=== PATIENT | male | born 1990 | race Caucasian/White ===

== ENCOUNTER 2018-04-19 11:33 | Emergency (ER) | payer OTHER ==
[2018-04-19 12:03] LABS: ABS Basophils 0 10^3/ul (0-0.2); ABS Eosinophils 0.1 10^3/ul (0-0.6); ABS Lymphocytes 2.3 10^3/ul (1.0-4.8); ABS Monocytes 0.8 10^3/ul (0-0.8); ABS Neutrophils 4.9 10^3/ul (1.5-7.7); ABS Nucleated RBC 0 10^3/ul; Eosinophil % 1.3 % (0-6); Hematocrit 49 % (42-52); Hemoglobin 17.1 g/dl (14.0-18.0); Lymphocyte % 28.8 % (25-47); Mean Corpuscular HGB Conc 35 g/dl (31-36); Mean Corpuscular Hemoglobin 30 pg (27-31); Mean Corpuscular Volume 86 fL (80-94); Mean Platelet Volume 8.1 fL (7.4-10.4); Nucleated Red Blood Cells % 0.1; Platelet Count 333 10^3/ul (150-450); Red Blood Count 5.67 10^6/ul (4.00-5.40); Red Cell Distribution Width 13 % (10.5-15); White Blood Count 8.1 10^3/ul (3.5-10.8)
[2018-04-19] MEDS ORDERED: Pantoprazole IV* 40 MG IV ONE (12:07)
[2018-04-19] MEDS ORDERED: Ondansetron INJ* 2 MG/ML VIAL IV ONE (12:07)
[2018-04-19] MEDS ORDERED: NS 0.9% 1000 ML* 1,000 ML IV ONE ×2 (12:07→13:07)
[2018-04-19 12:16] LABS: Urine Appearance Cloudy; Urine Blood Negative (Negative); Urine Color Amber; Urine Ketones 2+ (Negative); Urine Protein 1+(30 mg/dL) (Negative); Urine Specific Gravity 1.026 (1.010-1.030); Urine Urobilinogen Negative (Negative)
[2018-04-19 12:22] LABS: EGFR Non-African American 91.1 (>60)
--- NOTE | 2018-04-19 12:22 | ED ---
GI/ HPI - HPI Summary HPI Summary: 27-year-old male presents with nausea vomiting diarrhea for the past couple weeks. He admits to epigastric pain. No blood in his stool. States has not been able to keep anything down. Has been on omeprazole chronically. Has a history of acid reflux. Was told to stop ibuprofen. He was seen at [place] [address] and ultrasound. symptoms have not been improving. He admits to some right-sided chest pain and shortness breath. He has history of asthma. No fevers. No sore throat. He denies any urinary symptoms. No flank pain. No testicular pain. Pain is sharp in nature. Pain has not changed locations. - History of Current Complaint Chief Complaint: EDAbdPain Time Seen by Provider: 04/19/18 11:43 Stated Complaint: ABD PAIN/VOMITING Pain Intensity: 4 - Additional Pertinent History Primary Care Physician: [id number] - Allergy/Home Medications Allergies/Adverse Reactions: Allergies Allergy/AdvReac Type Severity Reaction Status Date / Time acetaminophen [From NyQuil] Allergy Hallucinati Verified 04/19/18 11:41 ons dextromethorphan Allergy Hallucinati Verified 04/19/18 11:41 [From NyQuil] ons doxylamine [From NyQuil] Allergy Hallucinati Verified 04/19/18 11:41 ons latex Allergy Unknown Verified 04/19/18 11:41 Reaction Details pseudoephedrine [From NyQuil] Allergy Hallucinati Verified 04/19/18 11:41 ons PMH/Surg Hx/FS Hx/Imm Hx Endocrine/Hematology History: Denies: Hx Diabetes Cardiovascular History: Denies: Hx Hypertension, Hx Pacemaker/ICD Respiratory History: Reports: Hx Asthma History: Denies: Hx Renal Disease Sensory History: Denies: Hx Hearing Aid Neurological History: Reports: Hx Seizures Psychiatric History: Reports: Hx of Violent Episodes Against Others Denies: Hx Eating Disorder, Hx Panic Disorder Infectious Disease History: No Infectious Disease History: Denies: Traveled Outside the [place] in Last 30 Days - Family History Known Family History: Positive: Other - no hx of crohn or UC - Social History Alcohol Use: None Substance Use Type: Reports: None Smoking Status (MU): Heavy Every Day Tobacco Smoker Type: Cigarettes Amount Used/How Often: 1/2 PPD Have You Smoked in the Last Year: Yes Review of Systems Negative: Fever Negative: Chest Pain Negative: Shortness Of Breath Positive: Abdominal Pain, Vomiting, Diarrhea, Nausea All Other Systems Reviewed And Are Negative: Yes Physical Exam Triage Information Reviewed: Yes Vital Signs On Initial Exam: Initial Vitals Temp Pulse Resp BP Pulse Ox 97.8 F 79 18 133/92 99 04/19/18 11:34 04/19/18 11:34 04/19/18 11:34 04/19/18 11:34 04/19/18 11:34 Vital Signs Reviewed: Yes Appearance: Positive: Well-Appearing Skin: Positive: Warm, Dry Head/Face: Positive: Normal Head/Face Inspection Eyes: Positive: Normal, EOMI, LETY, Conjunctiva Clear ENT: Positive: Normal ENT inspection, Pharynx normal, TMs normal Neck: Positive: Supple, Nontender, No Lymphadenopathy Respiratory/Lung Sounds: Positive: Clear to Auscultation, Breath Sounds Present Cardiovascular: Positive: Normal, RRR Abdomen Description: Positive: Soft, Other: - tenderness in RUQ, no rebound Bowel Sounds: Positive: Present Musculoskeletal: Positive: Normal Neurological: Positive: Normal Psychiatric: Positive: Normal Diagnostics - Vital Signs Vital Signs Temp Pulse Resp BP Pulse Ox 04/19/18 12:03 97.5 F 04/19/18 11:34 97.8 F 79 18 133/92 99 - Laboratory Lab Results: Lab Results 04/19/18 04/19/18 Range/Units 11:48 11:57 WBC 8.1 (3.5-10.8) 10^3/ul RBC 5.67 H (4.00-5.40) 10^6/ul Hgb 17.1 (14.0-18.0) g/dl Hct 49 (42-52) % MCV 86 (80-94) fL MCH 30 (27-31) pg MCHC 35 (31-36) g/dl RDW 13 (10.5-15) % Plt Count 333 (150-450) 10^3/ul MPV 8.1 (7.4-10.4) fL Neut % (Auto) 59.9 (38-83) % Lymph % (Auto) 28.8 (25-47) % Webb % (Auto) 9.5 H (0-7) % Eos % (Auto) 1.3 (0-6) % Baso % (Auto) 0.5 (0-2) % Absolute Neuts (auto) 4.9 (1.5-7.7) 10^3/ul Absolute Lymphs (auto) 2.3 (1.0-4.8) 10^3/ul Absolute Monos (auto) 0.8 (0-0.8) 10^3/ul Absolute Eos (auto) 0.1 (0-0.6) 10^3/ul Absolute Basos (auto) 0 (0-0.2) 10^3/ul Absolute Nucleated RBC 0 10^3/ul Nucleated RBC % 0.1 Urine Color Yesica Urine Appearance Cloudy Urine pH 5.0 (5-9) Ur Specific Garrett 1.026 (1.010-1.030) Urine Protein 1+(30 mg/dl) A (Negative) Urine Ketones 2+ A (Negative) Urine Blood Negative (Negative) Urine Nitrate Negative (Negative) Urine Bilirubin Negative (Negative) Urine Urobilinogen Negative (Negative) Ur Leukocyte Esterase Negative (Negative) Urine Glucose Negative (Negative) Result Diagrams: 04/19/18 11:48 04/19/18 11:48 Lab Statement: Any lab studies that have been ordered have been reviewed, and results considered in the medical decision making process. - Radiology chest Radiology Interpretation Completed By: Radiologist Summary of Radiographic Findings: IMPRESSION: #. Stigmata of obstructive lung disease. No acute pulmonary or cardiac process evident. - Ultrasound No standard instances Ultrasound Interpretation Completed By: Radiologist Summary of Ultrasound Findings: IMPRESSION: #. Hepatosteatosis. #. Negative for gallbladder pathology. - EKG No standard instances Cardiac Rate: NL EKG Rhythm: Sinus Rhythm Summary of EKG Findings: sinus rhythm, early repolarization Re-Evaluation - Re-Evaluation First Eval Re-Evaluation Time: 13:07 Change: Improved Comment: still a little nauseous Second Eval Re-Evaluation Time: 14:53 Change: Improved Comment: tolerated crackers and no pain GIGU Course/Dx - Course Course Of Treatment: 27-year-old male presents with nausea vomiting diarrhea for the past couple weeks. He admits to epigastric pain. No blood in his stool. States has not been able to keep anything down. Has been on omeprazole chronically. Has a history of acid reflux. Was told to stop ibuprofen. He was seen at [place] [address] and ultrasound. symptoms have not been improving. He admits to some right-sided chest pain and shortness breath. He has history of asthma. No fevers. No sore throat. He denies any urinary symptoms. No flank pain. No testicular pain. Pain is sharp in nature. Pain has not changed locations. On exam lungs clear to auscultation. Has tenderness in epigastric region. No rebound. Asthma blood cell count normal. CRP normal. Urine shows ketones. Gave fluids and Zofran and had some improvement. got CT from [place] per report shows no acute intrabdominal pathlogy. ekg shows sinus rhythm. chest xray normal. gallbladder u/s normal. gave fluids and reglan and feeling better. able to tolerate crackers. has follow up with GI. has compazine at pharmacy can use. patient understand and agrees with plan. - Diagnoses Differential Diagnoses - Male: Gastritis, Gastroenteritis (Viral), Urinary Tract Infection Provider Diagnoses: Epigastric pain, Nausea vomiting and diarrhea Discharge - Sign-Out/Discharge Documenting (check all that apply): Patient Departure - Discharge Plan Condition: Good Disposition: HOME Patient Education Materials: Acute Nausea and Vomiting (ED) Referrals: Carlyn Koch MD [Primary Care Provider] - Additional Instructions: Drink small amounts of fluid as tolerated When able to eat follow BRAT diet: Bananas, rice, applesauce, toast Take ibuprofen or Tylenol for pain as needed every 6 hours Follow up with primary within 5 days Return to ED if develop any new or worsening symptoms - Billing Disposition and Condition Condition: GOOD Disposition: Home
[2018-04-19] MEDS ORDERED: Metoclopramide IV* 5 MG/ML 2 ML VIAL IV SLOW PU ONE (13:07)
[2018-04-19 15:09] VITALS: BP 148/98
== END 2018-04-19 15:22 | disposition home or self-care (01) ==
LOC: ED 11:33
DX: R10.13 Epigastric pain (principal); R11.2 Nausea with vomiting, unspecified; R19.7 Diarrhea, unspecified; F17.210 Nicotine dependence, cigarettes, uncomplicated; K76.89 Other specified diseases of liver
CPT/HCPCS: 36415; 71046; 76705; 80053; 81003; 81015; 83605; 83690; 84484; 85025; 85379; 86140; 86308; 93005; 96361; 96374; 96375; 99282; J2405; J2765

== ENCOUNTER 2022-02-23 18:20 | Inpatient (IN) ==
[2022-02-23 21:20] LABS: ABS Basophils 0.1 10^3/ul (0-0.2); ABS Eosinophils 0.1 10^3/ul (0-0.6); ABS Lymphocytes 2.7 10^3/ul (1.0-4.8); ABS Monocytes 0.7 10^3/ul (0-0.8); ABS Neutrophils 10.4 10^3/ul (1.5-7.7); Eosinophil % 0.6 %; Hematocrit 50 % (42-52); Lymphocyte % 19.2 %; Mean Corpuscular HGB Conc 34 g/dL (31-36); Mean Corpuscular Hemoglobin 30 pg (27-31); Mean Corpuscular Volume 88 fL (80-94); Mean Platelet Volume 8.3 fL (7.4-10.4); Nucleated Red Blood Cells % 0.1; Platelet Count 308 10^3/uL (150-450); Red Blood Count 5.69 10^6 /uL (4.18-5.48); Red Cell Distribution Width 13 % (10-15); White Blood Count 13.9 10^3/uL (3.5-10.8)
[2022-02-23 21:42] LABS: Urine Benzodiazepine Screen None Detected (None Detect); Urine Cannabinoids Screen Presumptive Positive (None Detect); Urine Opiates Screen None Detected (None Detect)
[2022-02-23 21:54] LABS: ALT 30 U/L (7-52); AST 24 U/L (13-39); Acetaminophen < 15 mcg/mL; Albumin 4.7 g/dL (3.2-5.2); Albumin/Globulin Ratio 1.7 (1-3); Alcohol, S < 13 mg/dL (<13); Alkaline Phosphatase 79 U/L (35-149); Anion Gap 10 mmol/L (2-11); Blood Urea Nitrogen 13 mg/dL (6-24); CO2 Carbon Dioxide 26 mmol/L (22-32); Chloride 102 mmol/L (101-111); Globulin 2.8 g/dL (2-4); Glucose 95 mg/dL (70-100); Salicylate < 2.50 mg/dL (<30); Sodium 138 mmol/L (135-145); Total Protein 7.5 g/dL (6.4-8.9); eGFR CKD-EPI 121.5 (>60)
[2022-02-23 22:06] LABS: TSH Ultra Thyroid Stim Horm 1.93 mcIU/mL (0.34-5.60)
[2022-02-23 22:07] LABS: Urine Appearance Clear; Urine Bilirubin Negative (Negative); Urine Blood Negative (Negative); Urine Color Straw; Urine Glucose Negative (Negative); Urine Ketones Negative (Negative); Urine Nitrite Negative (Negative); Urine Protein Negative (Negative); Urine Specific Gravity 1.004 (1.002-1.030); Urine Urobilinogen Negative (Negative)
[2022-02-23 22:13] LABS: HIV 4th Generation Nonreactive (Nonreactive)
[2022-02-23 22:19] LABS: Urine Bacteria Absent (Absent); Urine Red Blood Cell 1+(3-5/hpf) (Absent); Urine Squamous Epithelial Cell Present (Absent); Urine White Blood Cell Trace(0-5/hpf) (Absent)
[2022-02-23 23:08] LABS: Valproic Acid < 13.0 mcg/mL (50-100)
[2022-02-24 02:24] VITALS: BP 119/96
[2022-02-24] MEDS ORDERED: Al Hydrox/Mg Hydrox/Simet LIQ 30 ML UDC PO PRN (02:57)
[2022-02-24] MEDS ORDERED: Vitamin THERAPEUTIC TAB PO SCH (09:00)
== END 2022-02-24 02:24 | disposition home or self-care (01) | DRG 757 ==
LOC: ED 18:20 → EDHOLD 23:50
PROVIDERS: ADMIT Student in an Organized Health Care Education/Training Program; ATTEND Student in an Organized Health Care Education/Training Program